=== PATIENT | male | born 1960 | race Caucasian/White ===

== ENCOUNTER 2021-04-07 01:54 | Emergency (ER) | payer MEDICAID ==
[~2021-04-07] VITALS: Ht 167.6 cm; Wt 81.4 kg
[~2021-04-07 01:54] MED LIST: ALBU8HFA PO; HALO5AMP2 PO; METF-436 PO; METF500T PO; METO50TA17 PO; THO10T PO; TRIH2TAB3 PO
[2021-04-07] MEDS ORDERED: hydrALAZINE 25 MG tablet PO ONE (02:05)
[2021-04-07 02:28] VITALS: BP_DIAS 92
[2021-04-07 02:36] VITALS: BP_SYST 183
[2021-04-07] MEDS ORDERED: normal saline 1000ML IV soln IVB ONE (02:45)
--- NOTE | 2021-04-07 02:56 | NUR ---
PT NOW IN ROOM 11 RECEIVING IV FLUIDS AND NURSING CARE. OFFICER MILO LEAVING BEDSIDE AND FILING REPORT WITH SAMMY.
[2021-04-07 03:15] LABS: BASOPHILS % (AUTO) 0.6 % (0-1); EOSINOPHILS # (AUTO) 0.2 X10'3 (0-0.9); EOSINOPHILS % (AUTO) 2.7 % (0-6); HEMATOCRIT 44.9 % (42.0-52.0); HEMOGLOBIN 15.6 g/dl (14.0-17.9); LYMPHOCYTES # (AUTO) 1.3 X10'3 (1.1-4.8); LYMPHOCYTES % (AUTO) 18.7 % (21-51); MEAN CORPUSCULAR HEMOGLOBIN 30.4 PG (27.0-31.0); MEAN CORPUSCULAR HGB CONC 34.8 g/dL (33.0-36.5); MEAN CORPUSCULAR VOLUME 87.3 FL (78-98); MEAN PLATELET VOLUME 8.1 FL (7.4-10.4); MONOCYTES # (AUTO) 0.7 X10'3 (0-0.9); MONOCYTES % (AUTO) 10.2 % (2-12); NEUTROPHILS # (AUTO) 4.6 X10'3 (1.8-7.7); NEUTROPHILS % (AUTO) 67.8 % (42-75); PLATELET COUNT 218 X10'3 (140-440); RED BLOOD COUNT 5.14 X10'6 (4.70-6.10); WHITE BLOOD COUNT 6.8 X10'3 (4.5-11.0)
[2021-04-07 03:27] LABS: ALANINE AMINOTRANSFERASE 29 U/L (12-78); ALBUMIN 3.1 G/DL (3.4-5.0); ALBUMIN/GLOBULIN RATIO 0.9 (1.1-1.5); ALKALINE PHOSPHATASE 105 IU/L (46-116); ANION GAP 10 (8-16); ASPARTATE AMINO TRANSFERASE 15 U/L (10-37); BILIRUBIN,TOTAL 0.4 MG/DL (0.1-1.0); BLOOD UREA NITROGEN 9 MG/DL (7-18); BUN/CREATININE RATIO 10.8 (5.4-32.0); CALCIUM 9.1 MG/DL (8.5-10.1); CHLORIDE 99 MMOL/L (99-107); CREATININE 0.83 MG/DL (0.60-1.10); GLUCOSE 447 MG/DL (70-104); POTASSIUM 3.2 MMOL/L (3.5-5.1); SODIUM 134 MMOL/L (135-145); TOTAL CARBON DIOXIDE 25.5 MMOL/L (24-32); TOTAL PROTEIN 6.5 G/DL (6.4-8.2); eGFR > 90 ML/MIN
[2021-04-07] MEDS ORDERED: ondansetron 4mg rapidly disintigrating tab PO ONE (03:50)
[2021-04-07] MEDS ORDERED: potassium Cl 20 mEq SR tablet PO STA (03:50)
== END 2021-04-07 04:13 | disposition home or self-care (01) ==
LOC: ER 01:55
DX: I10 Essential (primary) hypertension (principal); E11.65 Type 2 diabetes mellitus with hyperglycemia; F20.9 Schizophrenia, unspecified; F12.90 Cannabis use, unspecified, uncomplicated; Z98.890 Other specified postprocedural states; Z72.89 Other problems related to lifestyle; Z88.2 Allergy status to sulfonamides; Z88.8 Allergy status to other drugs, medicaments and biological substances; Z79.899 Other long term (current) drug therapy
CPT/HCPCS: 36415; 80053; 82948; 85025; 96360; 99284; J7030